=== PATIENT | female | born 2000 | race Caucasian/White ===

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

== ENCOUNTER 2020-07-19 10:42 | Emergency (ER) | payer OTHER, MEDICAID, SELFPAY ==
--- NOTE | ~2020-07-19 | XR_ITS ---
XR ankle RT min 3V DATE: 07/19/2020 11:33 INDICATION: Twisted ankle. Lateral pain, tenderness TECHNIQUE: 4 views COMPARISON: None FINDINGS: No fracture or dislocation of the ankle or disruption of the ankle mortise. IMPRESSION: Negative Reviewed, dictated and finalized at location A. IMPRESSION: Negative
--- NOTE | ~2020-07-19 | XR_ITS ---
XR foot RT min 3V DATE: 07/19/2020 11:33 INDICATION: Twisted ankle. Lateral ankle and foot pain, tenderness TECHNIQUE: 4 views COMPARISON: None FINDINGS: Linear 2 mm opacity is noted adjacent to the anterior process of the talus, likely chronic, possibly a small old avulsion fracture fragment. No apparent recent fracture or dislocation is sugge sted. IMPRESSION: No apparent recent fracture or dislocation detected Possible small old cortical avulsion fracture of the anterior process of the talus; recommend clinica l correlation for point tenderness at this location. Reviewed, dictated and finalized at location A. IMPRESSION: No apparent recent fracture or dislocation detected Possible small old cortical avulsion fracture of the anterior process of the ta margarita; recommend clinical correlation for point tenderness at this location.
--- NOTE | 2020-07-19 11:03 | ED.LOWEXIN ---
HPI - Extremity Injury (Lower) General Chief Complaint: Extremity Injury, Lower Stated Complaint: right ankle Time Seen by Provider: 07/19/20 11:03 Source: patient Mode of arrival: ambulatory Limitations: no limitations History of Present Illness HPI Narrative: 20-year-old woman comes in today complaining of right ankle and foot pain and swelling that started about 3:00 a.m. when she twisted her ankle. She was wearing which is and missed stepped on some stairs. She denies any other injury and had no preceding weakness, lightheadedness or loss consciousness. She states she has had ankle sprains in the past but no other significant injury. complaint: ankle injury Onset (ago): hour(s) (8) Injury: Right: ankle and foot Type of Injury: other ( twisted) Place: home Severity: moderate Relieving factors: rest Exacerbating factors: weight bearing Associated symptoms: swelling and able to partially bear weight Other symptoms: none Related Data Home Medications Medication Instructions Recorded Confirmed fluconazole 150 mg PO BID 07/19/20 07/19/20 Allergies Allergy/AdvReac Type Severity Reaction Status Date / Time cat dander Allergy Mild Rash Verified 07/19/20 11:32 Review of Systems Constitutional: Constitutional: Denies chills and Denies fever(s) Cardiovascular: Cardiovascular: Denies chest pain and Denies radiating jaw, neck or arm pain Respiratory: Respiratory: Denies cough and Denies dyspnea Gastrointestinal: Gastrointestinal: Denies nausea and Denies vomiting Musculoskeletal: Musculoskeletal: Reports as per HPI, Denies back pain, Reports arthralgias and Reports joint swelling Integumentary/Breasts: Skin/Breast: Denies pruritus, Denies rash and Denies skin ulcer Neurologic: Denies vertigo, Denies dizziness, Denies syncope, Denies focal weakness and Denies numbness Hematologic/Lymphatic: Hematologic/Lymphatic: Denies easy bleeding and Denies easy bruising PMFSH Social History Social History (Updated 07/19/20 @ 11:58 by Rico Pereira MD) Smoking status: Never smoker Alcohol intake: unknown Substance use: never Living arrangements: with family Gender identity (if verbalized by the patient): Female Exam Const: General: healthy appearing and alert Orientation/consciousness: patient oriented x3 Limitations: no limitations Other: mild acute distress Resp: Effort & Inspection: normal respiratory effort and not labored Auscultation: clear to auscultation bilaterally, no rales, no rhonchi and no wheezes Cardio: Rate: regular rate Rhythm: regular rhythm Heart sounds: no murmurs Skin: General skin exam: normal color, no jaundice and no pallor Rashes: no rashes Neuro: General: patient oriented x3, moves all extremities, no meningeal signs and CN's II-XI intact bilaterally Speech: normal speech Gait exam (Neuro): Normal gait present Extrem: General: normal to inspection and no clubbing, cyanosis or edema Other: Mild swelling of the right ankle joint anterior and laterally. There is no overlying erythema or induration. Approximately 30? inversion and eversion with approximately 50? of dorsiflexion/ plantar flexion. There is tenderness over the posterior malleolus and calcaneus, the lateral ligaments, but minimal tenderness over the bony malleoli. Positive squeeze test and tenderness at the anterior ankle joint over the talus and syndesmosis. Psych: Appearance: grossly normal and well kempt Mental Status: mental status grossly normal Affect: normal affect Attitude: cooperative Thought content: Yes Normal thought content present MDM - Extremity Injury (Lower) Differential Diagnosis Differential diagnosis: Likely ankle sprain and strain, ankle fracture and other ( Foot fracture) Imaging Data Radiologist's impression: ITS Impressions Ankle X-Ray 07/19/20 11:38 IMPRESSION: Negative Foot X-Ray 07/19/20 11:39 IMPRESSION: No apparent recent fracture or dislocation detected
[2020-07-19 11:11] VITALS: BP 137/84; PULSE 104; RESP 20; TEMP 36.9; O2SAT 100
[2020-07-19] MEDS: IBUPROFEN 600 MG TABLET PO (11:21)
[2020-07-19 12:08] VITALS: BP 128/82; PULSE 88; RESP 20; TEMP 36.8; O2SAT 100
== END 2020-07-19 12:10 | disposition home or self-care (01) ==
PROVIDERS: Emergency Provider Emergency Medicine; PCP Family Medicine
DX: S92.101A Unspecified fracture of right talus, initial encounter for closed fracture (principal); S93.401A Sprain of unspecified ligament of right ankle, initial encounter
CPT/HCPCS: 73610; 73630; 99283; 99284; A9270; L2112

== ENCOUNTER 2020-11-02 17:28 | Outpatient (CLI) | payer OTHER, MEDICAID, SELFPAY ==
[2020-11-02 18:44] LABS: SARS-CoV-2 RNA PCR Negative (Negative)
== END 2020-11-02 17:29 | disposition home or self-care (01) ==
PROVIDERS: PCP Family Medicine; Visit Provider Family Medicine
DX: J00 Acute nasopharyngitis [common cold] (principal); Z20.822 Contact with and (suspected) exposure to COVID-19
CPT/HCPCS: 87081; 87880; C9803; U0003; U0005

== ENCOUNTER 2022-06-15 12:32 | Outpatient (CLI) | payer OTHER, MEDICAID, SELFPAY ==
--- NOTE | ~2022-06-15 | CT_ITS ---
Clinical Indication: Shortness of breath CT Scan of the Chest with Contrast: Technique: Contiguous sections were acquired throughout the chest after intravenous administration of 100 cc of Omnipaque 350. Dose reduction technique was used on this scan by utilizing automated expos ure control and iterative reconstruction technique. The dose-length product (DLP) was 455.90 mGy-cm. Findings: There is no evidence of any significant mediastinal, hilar or axillary lymphadenopathy. There is no f illing defect in the pulmonary arterial tree to suggest pulmonary embolus. There is no evidence of ao rtic dissection or aneurysm. There is no evidence of pleural or pericardial effusion. The lungs are clear. No pulmonary nodules or infiltrates are noted. Images through the upper abdomen reveal no abnormalities. Impression: No evidence of pulmonary embolus, aortic dissection, or aortic aneurysm. Clear lungs. Reviewed, dictated and finalized at [facility]. Impression: No evidence of pulmonary embolus, aortic dissection, or aortic aneurysm. Clear lungs.
[2022-06-15 12:46] LABS: Basophils Absolute Auto 0.06 K/mm3 (0.00-0.10); Basophils Percent Auto 0.6 % (0.0-1.0); Eosinophils Percent Auto 7.2 % (1.0-6.0); Hematocrit 40.4 % (35.0-49.0); Hemoglobin 13.3 g/dL (12.0-15.0); Immature Granulocyte Absolute 0.06 K/mm3 (0.00-0.00); Immature Granulocyte Percent A 0.6 % (0.0-0.0); Lymphocytes Absolute Auto 2.53 K/mm3 (1.10-4.50); Lymphocytes Percent Auto 26.1 % (18.0-42.0); Mean Corpuscular HGB Conc 32.9 g/dL (32.0-36.0); Mean Corpuscular Hemoglobin 29.9 pg (27.0-31.0); Mean Corpuscular Volume 90.8 fL (78.0-102.0); Mean Platelet Volume 9.4 fl (9.2-11.8); Monocytes Absolute Auto 0.85 K/mm3 (0.10-0.90); Monocytes Percent Auto 8.8 % (2.0-11.0); Neutrophils Absolute Auto 5.5 K/mm3 (1.7-7.2); Neutrophils Percent Auto 56.7 % (50.0-70.0); Platelet Count Result 341 K/mm3 (150-420); Red Blood Count 4.45 M/mm3 (4.20-5.40); Red Cell Distribution Width 12.4 % (11.6-14.4); White Blood Count 9.7 K/mm3 (4.8-10.8)
[2022-06-15 13:06] LABS: D Dimer 1.06 mg/L (0.19-0.50)
[2022-06-15 13:17] LABS: Alanine Aminotransferase 17 U/L (14-59); Albumin Level 3.3 g/dL (3.4-5.0); Alkaline Phosphatase 74 U/L (46-116); Anion Gap 9 mmol/L (8-16); Aspartate Amino Transferase 19 U/L (15-37); Bilirubin,Total 0.3 mg/dL (0.00-1.00); Blood Urea Nitrogen 17 mg/dL (7-18); CRP 5.5 mg/dL (0.0-0.9); Carbon Dioxide 27 mmol/L (21-32); Chloride 105 mmol/L (98-108); Estimated Glomerular Filt Rate > 60; Free T4 Free Thyroxine 0.84 ng/dL (0.76-1.46); Glucose 82 mg/dL (70-99); NT Pro B Type Natriuretic Pept 92 pg/mL (0-125); Osmolality Calculated 292 mOsm/kg (285-295); Potassium 4.3 mmol/L (3.5-5.1); Sodium 141 mmol/L (136-145); Thyroid Stimulating Hormone 2.35 uIU/mL (0.36-3.74); Total Protein 7.7 g/dL (6.4-8.2)
== END 2022-06-15 12:33 | disposition home or self-care (01) ==
PROVIDERS: PCP Family Medicine; Visit Provider Nurse Practitioner Family
DX: M79.89 Other specified soft tissue disorders (principal); R06.02 Shortness of breath; I50.9 Heart failure, unspecified; R21 Rash and other nonspecific skin eruption
CPT/HCPCS: 36415; 71275; 80053; 83880; 84439; 84443; 85025; 85380; 86140; Q9967

== ENCOUNTER 2022-09-11 17:45 | Emergency (ER) | payer OTHER, MEDICAID, SELFPAY ==
--- NOTE | ~2022-09-11 | CT_ITS ---
Non-contrast CT scan of the Abdomen and Pelvis Clinical indication: Abdominal pain Technique: 2.5 mm axial scans were obtained through the abdomen and pelvis without intravenous or or al contrast. Dose reduction technique was used on this scan by utilizing automated exposure control a nd iterative reconstruction technique. The dose-length product (DLP) was 940.79 mGy-cm. Findings: Images through the lung bases reveal no abnormalities. There is no evidence of renal or ureteral calculi. The kidneys and the ureters are nondilated. The liver, spleen, pancreas, gallbladder, and adrenals appear normal. There is no aortic aneurysm. There is no evidence of bowel obstruction. Normal appendix. Images through the pelvis were performed. There is no evidence of ascites or lymphadenopathy. Urinary bladder unremarkable. 2.7 cm left ovarian cyst noted. No ascites. Impression: 2.7 cm left ovarian cyst, otherwise unremarkable exam. Reviewed, dictated and finalized at [facility]. Impression: 2.7 cm left ovarian cyst, otherwise unremarkable exam.
[2022-09-11 17:56] VITALS: BP 154/87; PULSE 113; RESP 20; TEMP 37.3; O2SAT 97
[2022-09-11 18:05] LABS: Appearance Urine Clear (Clear); Bilirubin Urine Negative (Negative); Blood Urine Trace-Intact (Negative); Color Urine Light Yellow (Yellow); Glucose Urine UA Negative (Negative); Ketones Urine Negative (Negative); Leukocyte Esterase Ur Negative LEU/UL (Negative); Nitrate Urine Negative (Negative); Protein Urine Negative (Negative); Urobilinogen Urine 0.2 mg/dL (0.2-1.0); pH Urine 6.5 (5.0-8.0)
[2022-09-11 18:14] LABS: Add Urine Microscopic? YES; RBC Urine None seen /hpf (0-2)
[2022-09-11 18:14] LABS: Pregnancy On Board Control Positive; Urine Pregnancy Test Negative
--- NOTE | 2022-09-11 18:34 | ED.GENADULT ---
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 Since bleeding started 2 hours ago she has only had 1 tampon in not any more bleeding. Denies any problems voiding or stooling. Has been little nauseous but no vomiting. complains of sharp lower abdominal pain and back pain 10/27 and bilateral hips she took 600 mg ibuprofen without much more ill relief complains of fatigue nausea without vomiting last menstrual period was August 22 through the previous. Was normal she is on oral contraceptive pills. She saw her river rat Monday she has had this pelvic pain for 2-3 weeks. On Monday 2 days ago she had urine tested she did not have any UTI or sexually transmitted diseases. She is to schedule a ultrasound for this week. Past medical history asthma. No history of heart lung kidney liver disease anemia thyroid disease hypertension diabetes stroke peptic ulcer disease or intestinal disease. Allergies: No drug allergies past medical history none no cough shortness of breath sore throat fever problems walking talking seeing or hearing eating or drinking. She has had urinary frequency for 2 weeks to 3 weeks but no dysuria urgency. She has been a little constipated. Denies any swelling lumps or bumps. Denies any other bleeding elsewhere denies any rash or itching dizziness or lightheadedness. Head pain within intercourse. A river rat she saw was Dr. Brewster [facility] [place] patient is scheduled to have a Pap on the Related Data Home Medications Medication Instructions Recorded Confirmed albuterol 90 mcg/actuation aerosol 90 mcg inhalation QID PRN 07/28/20 09/11/22 inhaler Shortness Of Breath Or Wheezing norgestimate-ethinyl estradiol 1 tablet PO DAILY 09/11/22 09/11/22 0.18 mg/0.215mg/0.25mg-35 mcg(28)tablet Allergies Allergy/AdvReac Type Severity Reaction Status Date / Time cat dander Allergy Mild Rash Verified 07/27/20 14:30 Review of Systems Review of Systems: All systems reviewed & are unremarkable except as noted in HPI and below PMFSH Past Medical History Medical History Anxiety Asthma Depression Family History Family History Other Asthma Depression Social History Social History Smoking status: Current every day smoker Tobacco type: e-cigarettes/vaping Alcohol intake: current Substance use: never Living arrangements: with family Gender identity (if verbalized by the patient): Female Exam Narrative: White female in mild distress.? Head:? Normocephalic atraumatic.? Eyes conjunctiva pink sclera nonicteric.? Ears TMs are normal.? Oropharynx is clear with moist mucous membranes no exudates.? Neck is supple no lymphadenopathy nontender full range of motion.? Back is nontender.? Chest nontender.? Lungs are clear without wheezes rales or rhonchi.? Heart is regular rate rhythm without murmurs gallops or rubs.? Abdomen soft and nontender or minimal tenderness lower abdomen without any rebound or guarding. no hepatosplenomegaly or masses no CVA tenderness no abdominal bruits.? Extremities no cyanosis clubbing or edema.? Neurological she is alert and oriented x4 motor and sensory grossly intact.? Skin is warm and dry without lesions. Course Vital Signs Vital signs: Vital Signs Temperature 37.3 C 09/11/22 17:56 Pulse Rate 113 H 09/11/22 17:56 Respiratory Rate 20 09/11/22 17:56 Blood Pressure 154/87 H
[2022-09-11 18:56] LABS: Hematocrit 39.5 % (35.0-49.0); Hemoglobin 13.2 g/dL (12.0-15.0); Mean Corpuscular HGB Conc 33.4 g/dL (32.0-36.0); Mean Corpuscular Hemoglobin 29.5 pg (27.0-31.0); Mean Corpuscular Volume 88.2 fL (78.0-102.0); Mean Platelet Volume 9.6 fl (9.2-11.8); Platelet Count Result 355 K/mm3 (150-420); Red Blood Count 4.48 M/mm3 (4.20-5.40); Red Cell Distribution Width 12.1 % (11.6-14.4); White Blood Count 10.5 K/mm3 (4.8-10.8)
[2022-09-11 19:08] LABS: INR 0.9; Partial Thromboplastin Time 28.5 SEC (23.90-30.70); Prothrombin Time 10.2 Seconds (9.50-12.10)
[2022-09-11 19:10] LABS: Alanine Aminotransferase 13 U/L (14-59); Albumin Level 3.1 g/dL (3.4-5.0); Alkaline Phosphatase 80 U/L (46-116); Anion Gap 9 mmol/L (8-16); Aspartate Amino Transferase 34 U/L (15-37); Bilirubin,Total 0.3 mg/dL (0.00-1.00); Blood Urea Nitrogen 16 mg/dL (7-18); Calcium 8.7 mg/dL (8.5-10.1); Carbon Dioxide 25 mmol/L (21-32); Chloride 104 mmol/L (98-108); Estimated CRCL calculation 121 ml/min; Estimated Glomerular Filt Rate > 60; Glucose 119 mg/dL (70-99); Osmolality Calculated 288 mOsm/kg (285-295); Potassium 3.2 mmol/L (3.5-5.1); Sodium 138 mmol/L (136-145); Total Protein 7.3 g/dL (6.4-8.2)
[2022-09-11] MEDS: KETOROLAC (*BKC) 60 MG/2 ML VIAL IM (19:24)
[2022-09-11] MEDS: ONDANSETRON HCL ODT 4 MG TABLET PO (19:24)
[2022-09-11 19:30] VITALS: PULSE 91; RESP 18; O2SAT 97
[2022-09-11 19:30] LABS: Lipase 23 U/L (16-77)
[2022-09-11 21:05] VITALS: BP 124/76; PULSE 91; RESP 18; O2SAT 99
== END 2022-09-11 21:28 | disposition home or self-care (01) ==
PROVIDERS: Emergency Provider Emergency Medicine; PCP Family Medicine
DX: N83.202 Unspecified ovarian cyst, left side (principal); R10.2 Pelvic and perineal pain; E87.6 Hypokalemia; F17.219 Nicotine dependence, cigarettes, with unspecified nicotine-induced disorders
CPT/HCPCS: 36415; 74176; 80053; 81001; 81025; 83690; 85027; 85610; 85730; 96372; 99284; A9270; J1885

== ENCOUNTER 2022-09-14 10:30 | Outpatient (CLI) | payer OTHER, MEDICAID, SELFPAY ==
--- NOTE | ~2022-09-14 | US_ITS ---
Pelvic ultrasound. Clinical History: Pelvic pain Technique: Realtime transabdominal and transvaginal scanning of the pelvis was performed. Color flow Doppler and Doppler spectral analysis were performed. Findings: The uterus is anteverted. The endometrial stripe has a thickness of 5 mm. No focal mass is identified. The right ovary measures 2.3 x 1.6 x 2.3 cm. No significant right ovarian or adnexal mass is seen. The left ovary is not visualized. No significant left ovarian or adnexal mass is seen. There is no evidence of free fluid in the cul de sac. Impression: No significant abnormality seen. Left ovary not visualized. Reviewed, dictated and finalized at location . Impression: No significant abnormality seen. Left ovary not visualized.
== END 2022-09-14 10:31 | disposition home or self-care (01) ==
LOC: CHSIMG 10:32
PROVIDERS: PCP Family Medicine; Visit Provider Nurse Practitioner Women's Health
DX: R10.2 Pelvic and perineal pain (principal)
CPT/HCPCS: 76830; 76856

== ENCOUNTER 2022-10-24 17:10 | Outpatient (CLI) | payer OTHER, MEDICAID, SELFPAY ==
--- NOTE | ~2022-10-24 | XR_ITS ---
EXAM: XR abdomen obstructive series DATE: 10/24/2022 17:37 HISTORY: all over abdominal pain x3mo, NKI, no N/V . COMPARISON: 02/23/2018; CT abdomen pelvis 09/11/2022. FINDINGS: Clear lung bases. Normal bowel gas pattern. No organomegaly. No abnormal abdominal calcifi cation. Regional bones and soft tissues normal for age. IMPRESSION: Normal abdominal radiograph findings. Reviewed, dictated and finalized at location K.
== END 2022-10-24 17:11 | disposition home or self-care (01) ==
LOC: CHSIMG 17:13
PROVIDERS: PCP Family Medicine; Visit Provider Nurse Practitioner Family
DX: R10.84 Generalized abdominal pain (principal)
CPT/HCPCS: 74019

== ENCOUNTER 2023-04-21 15:57 | Emergency (ER) | payer OTHER, MEDICAID, SELFPAY ==
--- NOTE | ~2023-04-21 | CT_ITS ---
EXAMINATION: CT abdomen pelvis wo con DATE: 04/21/2023 17:15 INDICATION: Low pelvic pain. TECHNIQUE: Computed tomography (CT) of the abdomen and pelvis was performed without intravenous contr ast. Automated exposure control and iterative reconstruction technique were employed. The dose-length product was 773.94 mGy-cm. COMPARISON: CT abdomen and pelvis 09/11/2022 FINDINGS: The visualized portions of the lung bases are clear without pneumonia or pleural effusion. The heart size is normal. No pericardial effusion. The liver, spleen, gallbladder, pancreas, adrenal glands, and kidneys are normal. There is no urolithiasis. There are no dilated loops of bowel. The ap pendix is normal. There are no pathologically enlarged lymph nodes. There is physiologic fluid in the pelvis. There is a 1.7 cm dominant follicle in right ovary. The bones are unremarkable. IMPRESSION: 1. No etiology for the patient's symptoms. Reviewed, dictated and finalized at location A. 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
[2023-04-21 15:58] VITALS: BP 113/88; PULSE 96; RESP 19; TEMP 36.8; O2SAT 99
--- NOTE | 2023-04-21 16:13 | ED.ABDPAIN ---
HPI - Abdominal Pain General Chief Complaint: Abdominal Pain Stated Complaint: abdominal pain Time Seen by Provider: 04/21/23 16:01 Source: patient Mode of arrival: ambulatory Limitations: no limitations History of Present Illness HPI narrative: Patient is a 23-year-old female with multiple complaints. She is having lower abdominal pain, dizziness and bright red blood per rectum x1 today. MD elicited complaint: abdominal pain Pertinent past history: none Onset (ago): week(s) (1) Pain Consistency: constant Location: RLQ, LLQ and pelvis Severity: mild Pain scale (0-10): 4 Quality: cramping and sharp Radiation: none Migration to: no migration Exacerbating factors: nothing Relieving factors: nothing Associated symptoms: hematochezia Related Data Home Medications Medication Instructions Recorded Confirmed albuterol 90 mcg/actuation aerosol 90 mcg inhalation QID PRN 07/28/20 04/21/23 inhaler Shortness Of Breath Or Wheezing norgestimate-ethinyl estradiol 1 tablet PO DAILY 09/11/22 04/21/23 0.18 mg/0.215mg/0.25mg-35 mcg(28)tablet Allergies Allergy/AdvReac Type Severity Reaction Status Date / Time cat dander Allergy Mild Rash Verified 04/21/23 16:19 Review of Systems Review of Systems: All systems reviewed & are unremarkable except as noted in HPI and below Constitutional: Constitutional: Reports no additional constitutional complaints Eyes: Eyes: Reports no additional eye complaints ENT: Reports system reviewed and no additional complaints, except as documented Cardiovascular: Cardiovascular: Reports no additional cardiovascular complaints Respiratory: Respiratory: Reports no additional respiratory complaints Gastrointestinal: Gastrointestinal: Reports no additional gastrointestinal complaints Genitourinary: Genitourinary: Reports no additional female genitourinary complaints Musculoskeletal: Musculoskeletal: Reports no additional musculoskeletal complaints Integumentary/Breasts: Skin/Breast: Reports system reviewed and no additional complaints, except as docu Neurologic: Reports system reviewed and no additional complaints, except as documented Psychiatric: Psychiatric: Reports no additional psychiatric complaints Endocrine: Endocrine: Reports no additional endocrine complaints Hematologic/Lymphatic: Hematologic/Lymphatic: Reports no additional hematologic/lymphatic complaints Allergic/Immunologic: Allergic/Immunologic: Reports no additional allergic/immunologic complaints PMFSH Past Medical History Medical History Anxiety Asthma Depression Family History Family History Other Asthma Depression Social History Social History Smoking status: Current every day smoker Tobacco type: e-cigarettes/vaping Alcohol intake: current Substance use: never Living arrangements: with family Gender identity (if verbalized by the patient): Female Exam Const: General: healthy appearing Nutritional Appearance: well nourished Orientation/consciousness: patient oriented x3 HENMT: Head: normal to inspection Ears: external ears normal Face/Nose/Sinus: Normal external nose present Eyes: Conjunctivae: conjunctivae normal Pupils: Equal, round and reactive pupils present EOM: EOMs intact bilaterally Neck: Neck: normal visual inspection Chest: Chest palpation & inspection: normal inspection of the chest Resp: Effort & Inspection: normal respiratory effort and not labored Auscultation: clear to auscultation bilaterally and no crackles Cardio: Rate: regular rate Rhythm: regular rhythm Heart sounds: no murmurs GI: Inspection: non-distended GI Palp: Yes Soft to palpation and Yes Tenderness to palpation present (GI) ( Diffuse lower abdomen tenderness bilaterally and suprapubic) Auscultation: normal bowel sounds :
[2023-04-21 16:51] LABS: Basophils Absolute Auto 0.07 K/mm3 (0.00-0.10); Basophils Percent Auto 0.7 % (0.0-1.0); Eosinophils Absolute Auto 0.48 K/mm3 (0.02-0.50); Hematocrit 41.2 % (35.0-49.0); Hemoglobin 13.6 g/dL (12.0-15.0); Immature Granulocyte Absolute 0.02 K/mm3 (0.00-0.00); Immature Granulocyte Percent A 0.2 % (0.0-0.0); Lymphocytes Absolute Auto 3.11 K/mm3 (1.10-4.50); Lymphocytes Percent Auto 32.4 % (18.0-42.0); Mean Corpuscular Volume 87.8 fL (78.0-102.0); Mean Platelet Volume 10.1 fl (9.2-11.8); Monocytes Absolute Auto 0.68 K/mm3 (0.10-0.90); Monocytes Percent Auto 7.1 % (2.0-11.0); Neutrophils Absolute Auto 5.3 K/mm3 (1.7-7.2); Neutrophils Percent Auto 54.6 % (50.0-70.0); Platelet Count Result 320 K/mm3 (150-420); Red Blood Count 4.69 M/mm3 (4.20-5.40); Red Cell Distribution Width 12.7 % (11.6-14.4); White Blood Count 9.6 K/mm3 (4.8-10.8)
[2023-04-21 16:53] LABS: Appearance Urine Clear (Clear); Bilirubin Urine Negative (Negative); Blood Urine Negative (Negative); Color Urine Yellow (Yellow); Glucose Urine UA Negative (Negative); Ketones Urine Negative (Negative); Leukocyte Esterase Ur Negative LEU/UL (Negative); Nitrate Urine Negative (Negative); Protein Urine Negative (Negative); Specific Grav Ur 1.015 (1.010-1.020); Urobilinogen Urine 0.2 mg/dL (0.2-1.0)
[2023-04-21 16:54] LABS: Add Urine Microscopic? NO
[2023-04-21 16:55] LABS: Pregnancy On Board Control Positive; Urine Pregnancy Test Negative
[2023-04-21 17:06] LABS: Partial Thromboplastin Time 30.9 SEC (23.90-30.70); Prothrombin Time 10.6 Seconds (9.50-12.10)
[2023-04-21 17:09] LABS: Alanine Aminotransferase 16 U/L (14-59); Albumin Level 3.7 g/dL (3.4-5.0); Alkaline Phosphatase 75 U/L (46-116); Anion Gap 13 mmol/L (8-16); Aspartate Amino Transferase 25 U/L (15-37); Bilirubin,Total 0.3 mg/dL (0.00-1.00); Blood Urea Nitrogen 16 mg/dL (7-18); Calcium 8.7 mg/dL (8.5-10.1); Carbon Dioxide 24 mmol/L (21-32); Chloride 101 mmol/L (98-108); Estimated Glomerular Filt Rate > 60; Glucose 85 mg/dL (70-99); Osmolality Calculated 286 mOsm/kg (285-295); Potassium 3.9 mmol/L (3.5-5.1); Sodium 138 mmol/L (136-145); Total Protein 7.9 g/dL (6.4-8.2)
[2023-04-21 17:21] LABS: Lipase 28 U/L (16-77)
[2023-04-21 17:45] VITALS: BP 110/78; PULSE 80; RESP 20; TEMP 36.7; O2SAT 98
== END 2023-04-21 17:54 | disposition home or self-care (01) ==
PROVIDERS: Emergency Provider Emergency Medicine; PCP Family Medicine
DX: R42 Dizziness and giddiness (principal); R10.10 Upper abdominal pain, unspecified; K92.1 Melena; F41.9 Anxiety disorder, unspecified; F32.A Depression, unspecified; F17.290 Nicotine dependence, other tobacco product, uncomplicated
CPT/HCPCS: 36415; 74176; 80053; 81003; 81025; 83690; 85025; 85610; 85730; 99284

== ENCOUNTER 2023-11-03 16:13 | Outpatient (CLI) | payer OTHER, SELFPAY ==
--- NOTE | ~2023-11-03 | XR_ITS ---
EXAMINATION: XR abdomen obstructive series DATE: 11/03/2023 16:33 INDICATION: Constipation TECHNIQUE: Supine and upright views of the abdomen. FINDINGS: 10/24/2022 The visualized lung parenchyma is normal.. There is a nonobstructive bowel gas pattern. Gas and stool are seen throughout the colon to the level of the rectum. There is no free air. IMPRESSION: 1. No acute abdominal abnormality. Reviewed, dictated and finalized at location B.
== END 2023-11-03 16:14 | disposition home or self-care (01) ==
LOC: CHSIMG 16:17
PROVIDERS: PCP Family Medicine; Visit Provider Family Medicine
DX: K59.00 Constipation, unspecified (principal)
CPT/HCPCS: 74019

== ENCOUNTER 2023-12-28 17:26 | Emergency (ER) | payer OTHER, SELFPAY ==
[2023-12-28 17:26] VITALS: BP 149/92; PULSE 92; RESP 18; TEMP 37.1; O2SAT 100
--- NOTE | 2023-12-28 17:32 | ED.NECK ---
HPI - Neck Pain/Injury General Chief Complaint: Neck Pain/Injury Stated Complaint: NECK PAIN Time Seen by Provider: 12/28/23 17:31 Source: patient Mode of arrival: ambulatory Limitations: no limitations History of Present Illness HPI Narrative: patient here today with some neck pain that started yesterday evening after she was lifting her CT at some spasmodic tender with palpation and with movement there is no numbness or tingling no radiation of her pain no shortness of breath no chest pain no nausea vomiting. complaint: neck pain Onset (ago): day(s) Place: home Radiation: right lateral Severity: moderate Severity scale (1-10): 6 Quality: sharp, aching and spasming Related Data Home Medications Medication Instructions Recorded Confirmed norgestimate-ethinyl estradiol 1 tablet PO DAILY 09/11/22 12/28/23 0.18 mg/0.215mg/0.25mg-35 mcg(28)tablet Allergies Allergy/AdvReac Type Severity Reaction Status Date / Time cat dander Allergy Mild Rash Verified 12/28/23 17:27 Review of Systems Review of Systems: All systems reviewed & are unremarkable except as noted in HPI and below PMFSH Past Medical History Medical History Anxiety Asthma Depression Family History Family History Other Asthma Depression Social History Social History Smoking status: Current every day smoker Tobacco type: e-cigarettes/vaping Alcohol intake: current Substance use: never Living arrangements: with family Gender identity (if verbalized by the patient): Female Exam Const: General: healthy appearing and no acute distress Nutritional Appearance: well nourished Orientation/consciousness: patient oriented x3 Limitations: no limitations HENMT: Head: normal to inspection Eyes: Conjunctivae: conjunctivae normal Pupils: Equal, round and reactive pupils present Neck: Neck: normal visual inspection, no lymphadenopathy and no meningeal signs Other: Tenderness right lateral neck with palpation Chest: Chest palpation & inspection: normal inspection of the chest Resp: Effort & Inspection: normal respiratory effort Auscultation: clear to auscultation bilaterally Cardio: Rate: regular rate Rhythm: regular rhythm GI: GI Palp: Yes Soft to palpation Auscultation: normal bowel sounds Back/Spine/Pelvis: Back: no CVA tenderness Skin: General skin exam: normal color Rashes: no rashes Neuro: General: patient oriented x3, moves all extremities and no meningeal signs Extrem: General: normal to inspection Course Course Emergency Course: patient received IM muscle relaxer along with 60mg of Toradol and Zofran for nausea after reassessment pains improved. Critical Care Time Critical Care Time Critical Care Time: No Discharge Plan Discharge Clinical Impression: Cervical strain Patient Disposition: Home, Self-Care Condition: Stable Instructions: Antibiotic Form, Cervical Strain (ED) Additional Instructions: advised take medication as prescribed and follow with primary if symptoms persist or worsen. Prescriptions: New naproxen 500 mg tablet 500 mg PO BID Qty: 14 0RF cyclobenzaprine 10 mg tablet 10 mg PO TID Qty: 20 0RF ondansetron 4 mg tablet,disintegrating 4 mg PO Q6H PRN (Reason: nausea and vomiting) Qty: 14 0RF No Action norgestimate-ethinyl estradiol 0.18/0.215/0.25 mg-35 mcg (28) tablet 1 tablet PO DAILY Follow-up/Referrals: Kaushal Weiss MD [Primary Care Provider] - Time of Disposition: 17:36
[2023-12-28] MEDS: ONDANSETRON HCL ODT 4 MG TABLET PO (17:56)
[2023-12-28] MEDS: ORPHENADRINE CITRATE 30 MG/ML 2 ML VIAL 60 MG IM (17:56)
[2023-12-28] MEDS: KETOROLAC (*BKC) 60 MG/2 ML VIAL IM (17:57)
[2023-12-28 18:40] VITALS: BP 114/74; PULSE 80; RESP 18; O2SAT 98
== END 2023-12-28 18:40 | disposition home or self-care (01) ==
LOC: CHSED 18:05
PROVIDERS: Emergency Provider Emergency Medicine; PCP Family Medicine
DX: S16.1XXA Strain of muscle, fascia and tendon at neck level, initial encounter (principal); F17.290 Nicotine dependence, other tobacco product, uncomplicated; X50.0XXA Overexertion from strenuous movement or load, initial encounter
CPT/HCPCS: 96372; 99284; A9270; J1885; J2360